=== PATIENT | female | born 2000 | race Two or more races ===

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

== ENCOUNTER 2021-01-01 17:49 | Emergency (ER) | payer OTHER ==
[~2021-01-01] VITALS: Ht 157.5 cm; Wt 54.5 kg
[~2021-01-01 17:49] MED LIST: LIDO1ADH TP
[2021-01-01 18:28] VITALS: BP 140/72
[2021-01-01 18:41] LABS: BASO # 0.1 x10^3/uL (0.0-0.2); BASO % 1 % (0-3); EOS # 0.1 x10^3/uL (0.0-0.7); EOS % 1 % (0-3); HEMATOCRIT 41.4 % (36.0-47.0); HEMOGLOBIN 13.6 g/dL (12.0-15.5); LYMPH # 2.3 x10^3/uL (1.0-4.8); LYMPH % 13 % (24-48); MEAN CORPUSCULAR HEMOGLOBIN 30 pg (25-35); MEAN CORPUSCULAR HGB CONC 33 g/dL (31-37); MEAN CORPUSCULAR VOLUME 91 fL (79-100); MONO # 1.4 x10^3/uL (0.0-1.1); MONO % 8 % (0-9); NEUT # 14.4 x10^3uL (1.8-7.7); NEUT % 78 % (31-73); PLATELET COUNT 330 x10^3/uL (140-400); RED BLOOD COUNT 4.57 x10^6/uL (3.50-5.40); RED CELL DISTRIBUTION WIDTH 14.4 % (11.5-14.5); WHITE BLOOD COUNT 18.4 x10^3/uL (4.0-11.0)
[2021-01-01 18:46] LABS: BARBITURATES NEG (NEG); BENZODIAZEPINES NEG (NEG); CANNABINOIDS POS (NEG); COCAINE POS (NEG); METHADONE NEG (NEG); OPIATES NEG (NEG); PHENCYCLIDINE NEG (NEG)
--- NOTE | 2021-01-01 18:46 | PHYS DOC ---
Past History Past Medical History: Asthma (SOHAM ISSA APRN) Past Surgical History: No Surgical History (SOHAM ISSA APRN) Alcohol Use: None (SOHAM ISSA APRN) General Adult EDM: Chief Complaint: HEADACHE HPI: HPI: Patient is a 20-year-old female who presents with headache, dizziness, blurry vision. Patient states that she woke up this morning with a headache and blurry vision in her right eye. Patient reports using cocaine last night. Patient denies history of migraines. Patient states "I would also like to be tested for chlamydia". "Please don't tell my boyfriend that I'm getting tested". Reports that she has had white, vaginal discharge. Patient denies unprotected sex with a new partner. Patient denies taking anything prior to arrival. Denies nausea and vomiting. Patient has health history of seizures. (SOHAM ISSA APRN) Review of Systems: Review of Systems: Constitutional: Denies fever or chills Eyes: Reports blurry vision HENT: Denies nasal congestion or sore throat Respiratory: Denies cough or shortness of breath Cardiovascular: Denies chest pain or edema GI: Denies abdominal pain, nausea, vomiting, bloody stools or diarrhea : Denies dysuria Musculoskeletal: Denies back pain or joint pain Integument: Denies rash Neurologic: Reports headache, denies focal weakness or sensory changes Endocrine: Denies polyuria or polydipsia Lymphatic: Denies swollen glands Psychiatric: Denies depression or anxiety (SOHAM ISSA APRN) Allergies: Allergies: Allergies Coded Allergies Type Severity Reaction Last Updated Verified No Known Drug Allergies 11/15/20 No (SOHAM ISSA APRN) Physical Exam: PE: Constitutional: Well developed, well nourished, no acute distress, non-toxic appearance. [] HENT: Normocephalic, atraumatic, bilateral external ears normal, oropharynx moist, no oral exudates, nose normal. [] Eyes: PERRLA, EOMI, conjunctiva normal, no discharge. [] Neck: Normal range of motion, no tenderness, supple, no stridor. [] Cardiovascular:Heart rate regular rhythm, no murmur [] Lungs & Thorax: Bilateral breath sounds clear to auscultation [] Abdomen: Bowel sounds normal, soft, no tenderness, no masses, no pulsatile ma sses. [] Skin: Warm, dry, no erythema, no rash. [] Back: No tenderness, no CVA tenderness. [] Extremities: No tenderness, no cyanosis, no clubbing, ROM intact, no edema. [] Neurologic: Alert and oriented X 3, normal motor function, normal sensory function, no focal deficits noted. [] Psychologic: Affect normal, judgement normal, mood normal. [] (SOHAM ISSA APRN) EKG: EKG: [] (SOHAM ISSA APRN) Radiology/Procedures: Radiology/Procedures: []PQRS Compliance Statement: One or more of the following individualized dose reduction techniques were utilized for this examination: 1. Automated exposure control 2. Adjustment of the mA and/or kV according to patient size 3. Use of iterative reconstruction technique CT HEAD WITHOUT CONTRAST History: Reason: headache / Spl. Instructions: / History: Comparison: None. Procedure: Axial images are obtained of the head from the skull base through the vertex without IV contrast. Findings: The ventricles and sulci are normal for the patient's age. No mass-effect, midline shift, hemorrhage, extra-axial fluid collection, or obvious acute infarction is identified. Basilar cisterns are patent. Bone windows demonstrate no acute calvarial abnormality. The visualized paranasal sinuses are clear. Mastoid air cells are well aerated. IMPRESSION: No acute intracranial abnormality. Electronically signed by: Lyndon Andujar MD (01/01/2021 8:22 PM) [facility] (SOHAM ISSA APRN) Heart Score: C/O Chest Pain: No Risk Factors: Risk Factors: DM, Current or recent (<one month) smoker, HTN, HLP, family history of CAD, obesity. Risk Scores: Score 0 - 3: 2.5% MACE over next 6 weeks - Discharge Home Score 4 - 6: 20.3% MACE over next 6 weeks - Admit for Clinical Observation Score 7 - 10: 72.7% MACE over next 6 weeks - Early Invasive Strategies (SOHAM ISSA APRN) Course & Med Decision Making: Course & Med Decision Making Pertinent Labs and Imaging studies reviewed. (See chart for details) [] Patient is reporting headache, dizziness, blurry vision. CT of head without contrast ordered to rule out intracranial bleeding. Visual acuity orderd to check vision. Urine negative. UA is positive for nitrates and WBCs. Macrobid ordered for UTI. White count is 18.4. Patient reports using cocaine and marijuana. UDS was positive for marijuana, cocaine, methamphetamin es/amphetamines. EKG shows sinus tachycardia. Heart rate 101 bpm. Patient stated, "I have had some vaginal discharge, I wanted to be tested for chlamydia". Explained to patient that we would call her if she was positive for STI. Informed patient she had a UTI and given a prescription for Macrobid. CT is negative for any acute abnormalities. Patient is hemodynamically stable. Neurologically intact. Able to ambulate on her own out of the emergency room. Patient instructed to take ibuprofen at home for headache. Patient feels safe to be discharged home. I told patient to call opthamologist for follow up. I gave her referral. [phone] Thai Reynoldsyazmin. Patient given strict return precautions to return to the ED. Patient is appreciative and agrees with discharge plan. (SOHAM ISSA APRN) Course & Med Decision Making Did not see or evaluate patient. Agree with [facility] ARCHITECT's work-up and disposition per note (AMY FAN MD) Dragon Disclaimer: Dragon Disclaimer: This electronic medical record was generated, in whole or in part, using a voice recognition dictation system. (SOHAM ISSA APRN) Departure Departure: Impression: Primary Impression: Acute cystitis Qualified Codes: N30.00 - Acute cystitis without hematuria Additional Impression: Headache Qualified Codes: R51.9 - Headache, unspecified Disposition: HOME / SELF CARE / HOMELESS Condition: STABLE Referrals: PCP,NO (PCP) Patient Instructions: General Headache Without Cause Additional Instructions: You are seen in the emergency room for a headache, dizziness. Your urine was positive for a urinary tract infection. Make sure to increase your water intake. I have also written you prescription for Macrobid. Please take this antibiotic in full as directed, for UTI. CT of your head was negative for any acute abnormalities. Please return emergency room with worsening symptoms or concerns. Otherwise you may follow-up with your PCP. EMERGENCY DEPARTMENT GENERAL DISCHARGE INSTRUCTIONS Thank you for coming to [facility] (ED) today and trusting us with you care. We trust that you had a positivie experience in our Emergency Department. If you wish to speak to the department management, you may call the director at [phone]. YOUR FOLLOW UP INSTRUCTIONS ARE FOLLOWS: 1. Do you have a private Doctor? If you do not have a private doctor, please ask for a resource list of physicians or clinics that may be able to assist you with follow up care. 2. The Emergency Physician has interpreted your x-rays. The X-Ray specialist will also review them. If there is a change in the findings, you will be notified in 48 hours when at all possible. 3. A lab test or culture has been done, your results will be reviewed and you will be notified if you need a change in treatment. ADDITIONAL INSTRUCTIONS AND INFORMATION: 1. Your care today has been supervised by a physician who is specially trained in emergency care. Many problems require more than one evaluation for a complete diagnosis and treatment. We recommend that you schedule your follow up appointment as recommended to ensure complete treatment of you illness or injury. If you are unable to obtain follow up care and continue to have a problem, or if your condition worsens, we recommend that you return to the ED. 2. We are not able to safely determine your condition over the phone nor are we able to give sound medical advice over the phone. For these safety reasons, if you call for medical advice we will ask you to come to the ED for further evaluation. 3. If you have any questions regarding these discharge instructions please call the ED at [phone]. SAFETY INFORMATION: In the interest of safety, wellness, and injury prevention; we encourage you to wear your sealbelt, if you smoke; quite smoking, and we encourage family to use a protective helmet for bicycling and other sporting events that present an increased risk for head injury. IF YOUR SYMPTOMS WORSEN OR NEW SYMPTOMS DEVELOP, OR YOU HAVE CONCERNS ABOUT YOUR CONDITION; OR IF YOUR CONDITION WORSENS WHILE YOU ARE WAITING FOR YOUR FOLLOW UP APPOINT MENT; EITHER CONTACT YOUR PRIMARY CARE DOCTOR, THE PHYSICIAN WHOSE NAME AND NUMBER YOU WERE GIVEN, OR RETURN TO THE ED IMMEDIATELY. Scripts Nitrofurantoin Monohyd/M-Cryst (MACROBID 100 MG CAPSULE) 100 Mg Capsule 100 CAP PO BID for UTI for 5 Days, #10 CAP Prov: SOHAM ISSA APRN 01/01/21 SOHAM ISSA APRN Jan 01, 2021 18:46 AMY FAN MD Jan 01, 2021 22:30
[2021-01-01 18:48] LABS: AMPHETAMINE/METHAMPHETAMINE POS (NEG)
[2021-01-01 18:51] LABS: CALCIUM 9.5 mg/dL (8.5-10.1); CREATININE 0.8 mg/dL (0.6-1.0); GFR 92.4; POTASSIUM 3.3 mmol/L (3.5-5.1)
[2021-01-01 18:57] LABS: ALBUMIN 4.2 g/dL (3.4-5.0); TOTAL BILIRUBIN 0.6 mg/dL (0.2-1.0); TOTAL PROTEIN 8.3 g/dL (6.4-8.2)
[2021-01-01 18:58] LABS: BILIRUBIN,URINE SMALL (NEG); CLARITY,URINE HAZY; COLOR,URINE AMBER; GLUCOSE,URINE NEG (NEG)
[2021-01-01 18:59] LABS: NITRITE,URINE POS (NEG); UROBILINOGEN,URINE 0.2 mg/dL (0.2 mg/dL)
[2021-01-01 19:00] LABS: BACTERIA,URINE FEW /HPF (0-FEW); RBC,URINE OCC /HPF (0-2); SQUAMOUS EPITHELIAL CELL,UR MOD /LPF
[2021-01-01 19:12] LABS: U PREG PATIENT NEGATIVE (NEG)
[2021-01-01 19:21] LABS: % BANDS 2 % (0-9); % LYMPHS 13 % (24-48); % MONOS 9 % (0-10); % SEGS 76 % (35-66)
[2021-01-01 19:22] LABS: PLT ESTIMATE ADEQUATE (ADEQUATE)
[2021-01-01] MEDS ORDERED: NITR100C62 PO (19:40)
--- NOTE | 2021-01-01 20:25 | RAD ---
PQRS Compliance Statement: One or more of the following individualized dose reduction techniques were utilized for this examinat ion: 1. Automated exposure control 2. Adjustment of the mA and/or kV according to patient size 3. Use of iterative reconstruction technique CT HEAD WITHOUT CONTRAST History: Reason: headache / Spl. Instructions: / History: Comparison: None. Procedure: Axial images are obtained of the head from the skull base through the vertex without IV co ntrast. Findings: The ventricles and sulci are normal for the patient's age. No mass-effect, midline shift, hemorrhage, extra-axial fluid collection, or obvious acute infarction is identified. Basilar cisterns are patent. Bone windows demonstrate no acute calvarial abnormality. The visualized paranasal sinuses are clear. Mastoid air cells are well aerated. IMPRESSION: No acute intracranial abnormality. Electronically signed by: Lyndon Andujar MD (01/01/2021 8:22 PM) [facility]
--- NOTE | 2021-01-01 20:32 | RAD ---
XR CHEST 1V CLINICAL INDICATIONS: Reason: headache, ALTERED MENTAL STATUS, CURRENT EVERYDAY SMOKER. / COMPARISON: November 15, 2020. Findings: No acute lung infiltrate or pleural effusion or pulmonary edema or lung mass or pneumothora x is seen. The heart size, pulmonary vasculature, mediastinum and both barby are unremarkable. IMPRESSION: No acute radiographic abnormality is seen. Electronically signed by: Kain Gudino MD (01/01/2021 8:29 PM) [id number]
--- NOTE | 2021-01-02 12:48 | EKG ---
[address] [address] Test Date: 2021-01-01 Test Time: 18:19:14 Pat Name: GIOVANNI CURTIS Department: Room: Gender: F Literature Professor: REJI : 2000 Requested By: SOHAM ISSA Order Number: [id number] Reading MD: Measurements Intervals [place] Rate: 101 P: 66 WA: 112 QRS: 74 QRSD: 88 T: 58 QT: 350 QTc: 455 Interpretive Statements SINUS TACHYCARDIA OTHERWISE NORMAL ECG RI6.02 No previous ECG available for comparison
== END 2021-01-01 20:30 | disposition home or self-care (01) ==
LOC: ER 17:49
DX: N30.00 Acute cystitis without hematuria (principal); R51.9 Headache, unspecified; J45.909 Unspecified asthma, uncomplicated; R42 Dizziness and giddiness; H53.8 Other visual disturbances
CPT/HCPCS: 36415; 70450; 71045; 80053; 80307; 81001; 81025; 85007; 85025; 87086; 93005; 99285-25

== ENCOUNTER 2021-01-06 00:38 | Emergency (ER) | payer OTHER ==
[~2021-01-06] VITALS: Ht 157.5 cm; Wt 54.5 kg
[~2021-01-06 00:38] MED LIST changes: +NITR100C62 PO
[2021-01-06] MEDS ORDERED: ONDANSETRON PF 4 MG/2 ML VIAL. IVP ONE (01:00)
[2021-01-06] MEDS ORDERED: MORPHINE SULFATE 4 MG/ML DISP.SYRIN. IV ONE (01:00)
[2021-01-06] MEDS ORDERED: IV NORMAL SALINE 1,000ML 1,000 ML IV ONE (01:15)
--- NOTE | 2021-01-06 01:18 | PHYS DOC ---
Past History Past Medical History: Asthma, Seizure Past Surgical History: No Surgical History Alcohol Use: None General Adult EDM: Chief Complaint: FLANK PAIN HPI: HPI: 20-year-old female presents with sudden onset right lower quadrant abdominal pain and right flank pain. The patient was asleep and she woke out of sleep to a severe pain in her right flank that radiates to her right groin. The pain was so severe she immediately came to the emergency room. Patient denies any trauma or falls. She does not know why this is happening. Last menstrual cycle was in November. She admits to marijuana use, but none in the last 24 hours. She is nauseated. She denies fever or chills. She is diaphoretic. Review of Systems: Review of Systems: Constitutional: Denies fever or chills Eyes: Denies change in visual acuity HENT: Denies nasal congestion or sore throat Respiratory: Denies cough or shortness of breath Cardiovascular: Denies chest pain or edema GI: Right lower quadrant abdominal pain, nausea. Denies bloody stools or diarrhea : Denies dysuria Musculoskeletal: Denies back pain or joint pain Integument: Denies rash Neurologic: Denies headache, focal weakness or sensory changes Endocrine: Denies polyuria or polydipsia Lymphatic: Denies swollen glands Psychiatric: Denies depression or anxiety Current Medications: Current Meds: Current Medications Medications (Trade) Dose Ordered Sig/Cristo Start Time Stop Time Status Last Admin Dose Admin Morphine Sulfate (Morphine 4mg Syringe) 4 mg 1X ONCE 01/06/21 01:00 01/06/21 01:05 DC 01/06/21 01:13 4 MG Ondansetron HCl (Zofran) 4 mg 1X ONCE 01/06/21 01:00 01/06/21 01:05 DC 01/06/21 01:12 4 MG Sodium Chloride 1,000 ml @ 1,000 mls/hr 1X ONCE 01/06/21 01:15 01/06/21 02:14 01/06/21 01:13 1,000 MLS/HR Allergies: Allergies: Allergies Coded Allergies Type Severity Reaction Last Updated Verified No Known Drug Allergies 01/06/21 No Physical Exam: PE: Constitutional: Well developed, well nourished, no acute distress, non-toxic appearance. [] HENT: Normocephalic, atraumatic, bilateral external ears normal, oropharynx moist, no oral exudates, nose normal. [] Eyes: PERRLA, EOMI, conjunctiva normal, no discharge. [] Neck: Normal range of motion, no tenderness, supple, no stridor. [] Cardiovascular: Heart rate regular rhythm, no murmur [] Lungs & Thorax: Bilateral breath sounds clear to auscultation [] Abdomen: Bowel sounds normal, soft, RLQ tenderness, no masses, no pulsatile masses. [] Skin: Warm, dry, no erythema, no rash. [] Back: No tenderness, no CVA tenderness. [] Extremities: No tenderness, no cyanosis, no clubbing, ROM intact, no edema. [] Neurologic: Alert and oriented X 3, normal motor function, normal sensory function, no focal deficits noted. [] Psychologic: Affect normal, judgement normal, mood normal. [] Current Patient Data: Vital Signs: Vital Signs Date Time Temp Pulse Resp B/P (MAP) Pulse Ox O2 Delivery O2 Flow Rate FiO2 01/06/21 01:13 32 EKG: EKG: [] Radiology/Procedures: Radiology/Procedures: [] Impressions: CT abdomen pelvis without contrast dated 01/06/2021. No comparison available. Clinical data indication: Right flank pain. TECHNIQUE: Contiguous axial imaging the abdomen pelvis performed without the administration of IV or oral contrast. One or more of the following individualized dose reduction techniques were utilized for this examination: 1. Automated exposure control 2. Adjustment of the mA and/or kV according to patient size 3. Use of iterative reconstruction technique. FINDINGS: There is a 3 mm calcific stone at the proximal right ureter at or just beyond the UPJ. Mild inflammatory stranding in the perinephric fat with mild right- sided hydronephrosis. No calcific stone within the substance of either kidney. No left ureteral stone or left hydronephrosis. Solid abdominal viscera not well evaluated in the absence of contrast material. No apparent attenuation abnormality of the liver or spleen. Gallbladder is collapsed and not well evaluated. Pancreas and adrenal glands are unremarkable. Unopacified GI tract normal in caliber and contour. No focal bowel wall thickening. No inflammatory stranding in the mesentery. The appendix is normal in caliber. No lymphadenopathy. Abdominal aorta normal in caliber. Images of pelvis show nondistended urinary bladder. No calcific bladder stone. Small amount of free pelvic fluid. Uterus and adnexa are unremarkable. Limited images of lung bases are clear. Heart size within normal limits. No pleural or pericardial effusion. Bone windows show no acute finding. IMPRESSION: 1. There is a 3 mm calcific stone at or just beyond the right UPJ. Mild obstructive uropathy. 2. Otherwise no acute findings. Normal appendix. 3. Small amount of free pelvic fluid, nonspecific. Electronically signed by: Antonino Carballo MD (01/06/2021 2:22 AM) [facility] DICTATED AND SIGNED BY: ANTONINO CARBALLO MD DATE: 01/06/21219 CC: ANANYA MINOR DO; PCP,NO ~MTH0 0 Heart Score: C/O Chest Pain: N/A Risk Factors: Risk Factors: DM, Current or recent (<one month) smoker, HTN, HLP, family history of CAD, obesity. Risk Scores: Score 0 - 3: 2.5% MACE over next 6 weeks - Discharge Home Score 4 - 6: 20.3% MACE over next 6 weeks - Admit for Clinical Observation Score 7 - 10: 72.7% MACE over next 6 weeks - Early Invasive Strategies Course & Med Decision Making: Course & Med Decision Making Pertinent Labs and Imaging studies reviewed. (See chart for details) The patient's labs are unremarkable. Her urinalysis is negative for infection. There is a significant amount of blood. Her creatinine is normal. Her CT scan shows a 3 mm kidney stone. See official read for more details. This is likely to pass. I have given the patient a liter normal saline, 4 mg of morphine, 1 mg of Dilaudid, and 30 mg of Toradol. Her urinalysis is positive for p olysubstances. See results for more details. I will discharge the patient with [place] in spite of her polysubstance abuse because she has a legitimate medical condition that will require pain medication. I have advised that she follow-up with urology. She is stable for discharge at this time. [] Sanjuana Disclaimer: Sanjuana Disclaimer: This electronic medical record was generated, in whole or in part, using a voice recognition dictation system. Departure Departure: Impression: Primary Impression: Kidney stone on right side Disposition: HOME / SELF CARE / HOMELESS Condition: STABLE Referrals: PCP,NO (PCP) Patient Instructions: Kidney Stones, [id number] Scripts Tamsulosin Hcl (FLOMAX) 0.4 Mg Cap.er.24h 1 CAP PO DAILY for kidney stone for 7 Days, #7 CAP 3 Refills Prov: ANANYA MINOR DO 01/06/21 Hydrocodone/Acetaminophen (Hydrocodone-Acetamin 5-325 mg) 1 Each Tablet 1 EACH PO Q4-6HRS PRN for PAIN, #20 TAB Prov: ANANYA MINOR DO 01/06/21 ANANYA MINOR DO Jan 06, 2021 01:18
[2021-01-06] MEDS ORDERED: HYDROmorphone PF 1 MG/ML DISP.SYRIN ONE (01:30)
[2021-01-06] MEDS ORDERED: HYDROmorphone PF 1 MG/ML DISP.SYRIN IVP ONE (01:30)
[2021-01-06 01:46] LABS: BASO # 0.2 x10^3/uL (0.0-0.2); BASO % 1 % (0-3); EOS # 0.3 x10^3/uL (0.0-0.7); EOS % 2 % (0-3); HEMATOCRIT 38.9 % (36.0-47.0); HEMOGLOBIN 12.8 g/dL (12.0-15.5); LYMPH # 6.4 x10^3/uL (1.0-4.8); LYMPH % 48 % (24-48); MEAN CORPUSCULAR HEMOGLOBIN 30 pg (25-35); MEAN CORPUSCULAR HGB CONC 33 g/dL (31-37); MEAN CORPUSCULAR VOLUME 91 fL (79-100); MONO # 1.1 x10^3/uL (0.0-1.1); MONO % 8 % (0-9); NEUT # 5.3 x10^3uL (1.8-7.7); NEUT % 40 % (31-73); PLATELET COUNT 332 x10^3/uL (140-400); RED BLOOD COUNT 4.28 x10^6/uL (3.50-5.40); RED CELL DISTRIBUTION WIDTH 14.1 % (11.5-14.5); WHITE BLOOD COUNT 13.2 x10^3/uL (4.0-11.0)
[2021-01-06 01:52] LABS: CLARITY,URINE CLOUDY
[2021-01-06 01:53] LABS: COLOR,URINE BROWN
[2021-01-06 01:55] LABS: BACTERIA,URINE 0 /HPF (0-FEW); RBC,URINE >40 /HPF (0-2); SQUAMOUS EPITHELIAL CELL,UR FEW /LPF; WBC,URINE OCC /HPF (0-4)
[2021-01-06 01:57] LABS: CALCIUM 8.8 mg/dL (8.5-10.1); CREATININE 0.9 mg/dL (0.6-1.0); GFR 80.7; POTASSIUM 3.8 mmol/L (3.5-5.1)
[2021-01-06 02:01] LABS: BARBITURATES NEG (NEG); BENZODIAZEPINES NEG (NEG); CANNABINOIDS POS (NEG); COCAINE POS (NEG); METHADONE NEG (NEG); OPIATES POS (NEG); PHENCYCLIDINE NEG (NEG)
[2021-01-06 02:04] LABS: ALBUMIN 3.8 g/dL (3.4-5.0); TOTAL BILIRUBIN 0.2 mg/dL (0.2-1.0); TOTAL PROTEIN 7.7 g/dL (6.4-8.2)
[2021-01-06 02:06] LABS: AMPHETAMINE/METHAMPHETAMINE POS (NEG)
[2021-01-06] MEDS ORDERED: KETOROLAC 30 MG/ML VIAL. IVP ONE (02:15)
--- NOTE | 2021-01-06 02:24 | RAD ---
CT abdomen pelvis without contrast dated 01/06/2021. No comparison available. Clinical data indication: Right flank pain. TECHNIQUE: Contiguous axial imaging the abdomen pelvis performed without the administration of IV or oral contra st. One or more of the following individualized dose reduction techniques were utilized for this examinat ion: 1. Automated exposure control 2. Adjustment of the mA and/or kV according to patient size 3. Use of iterative reconstruction technique. FINDINGS: There is a 3 mm calcific stone at the proximal right ureter at or just beyond the UPJ. Mild inflammat ory stranding in the perinephric fat with mild right-sided hydronephrosis. No calcific stone within t he substance of either kidney. No left ureteral stone or left hydronephrosis. Solid abdominal viscera not well evaluated in the absence of contrast material. No apparent attenuati on abnormality of the liver or spleen. Gallbladder is collapsed and not well evaluated. Pancreas and adrenal glands are unremarkable. Unopacified GI tract normal in caliber and contour. No focal bowel wall thickening. No inflammatory s tranding in the mesentery. The appendix is normal in caliber. No lymphadenopathy. Abdominal aorta nor mal in caliber. Images of pelvis show nondistended urinary bladder. No calcific bladder stone. Small amount of free p elvic fluid. Uterus and adnexa are unremarkable. Limited images of lung bases are clear. Heart size within normal limits. No pleural or pericardial ef fusion. Bone windows show no acute finding. IMPRESSION: 1. There is a 3 mm calcific stone at or just beyond the right UPJ. Mild obstructive uropathy. 2. Otherwise no acute findings. Normal appendix. 3. Small amount of free pelvic fluid, nonspecific. Electronically signed by: Antonino Carballo MD (01/06/2021 2:22 AM) [facility]
[2021-01-06] MEDS ORDERED: TAMS0.4C97 PO (02:36)
[2021-01-06] MEDS ORDERED: HYDR-2759 PO (02:36)
[2021-01-06 02:49] VITALS: BP 125/76
[2021-01-07 16:11] LABS: CHLAMYDIA PROBE Positive (Negative)
== END 2021-01-06 02:49 | disposition home or self-care (01) ==
LOC: ER 00:38
DX: N13.2 Hydronephrosis with renal and ureteral calculous obstruction (principal); J45.909 Unspecified asthma, uncomplicated
CPT/HCPCS: 36415; 74176; 80053; 80307; 81001; 81025; 85025; 87491; 87591; 96361; 96374; 96375; 99285; J1170; J1885; J2270; J2405; J7030; Q0111